=== PATIENT | female | born 1970 | race Two or more races ===

== ENCOUNTER 2024-08-06 09:22 | Inpatient (IN) | payer OTHER ==
[~2024-08-06] VITALS: Ht 162.6 cm; Wt 63.5 kg
--- NOTE | 2024-08-06 09:34 | NUR ---
PACIENTE ALERTA Y ORIENTADA X 3. REFIERE MEDICO SE COMUNICO PARA INDICARLE SODIO Y POTASIO MUY BAJO.
[2024-08-06] MEDS ORDERED: GABAPENTIN300 M2 PO (09:39)
[2024-08-06] MEDS ORDERED: OXTELLAR XR600 MG (09:39)
[2024-08-06] MEDS ORDERED: HYZAAR 100-12.1 EACH PO (09:41)
[2024-08-06] MEDS ORDERED: ESTROGEL50 GM (09:42)
[2024-08-06] MEDS ORDERED: HYDROCHLOROTHIA25 MG PO (09:42)
[2024-08-06] MEDS ORDERED: [UNRECOGNIZED DRUG - OTHER] (09:43)
[2024-08-06] MEDS ORDERED: 0.9 % SODIUM CHLORIDE 1,000 ML IV STA (10:14)
--- NOTE | 2024-08-06 10:26 | NUR ---
PTE ALERTA Y ORIENTADA X3. EL AMES EDUCA A PTE SOBRE TX MEDICO, LA MISMA REFIERE ENTENDER. SE CHARBEL MUESTRAS DE LAB BAJO MEDIDAS ASEPTICAS Y SE COLOCAN IV FLUIDS. SE HACE ENTREGA DE ENVASE PARA U/A PENDIENTE.
[2024-08-06 11:13] LABS: HEMATOCRIT 38.6 % (36.0-45.00); HEMOGLOBIN 13.5 g/dL (12.0-15.00); MEAN CELL VOLUME 93.1 fL (80.00-100.00); MEAN CORPUSCULAR HEMOGLOBIN 32.6 pg (27.00-32.0); PLATELET COUNT 304 K/uL (150-450); RED BLOOD COUNT 4.15 M/uL (4.00-6.00); RED CELL DISTRIBUTION WIDTH 12.7 % (11.5-14.5)
--- NOTE | 2024-08-06 11:14 | NUR ---
SE RECIBE PTE ALERTA Y ORIENTADA X3 EN LA UNIDAD DE CUIDADO CRITICO, SE CONECTA A LA MISMA A MONITOR CARDIAC Y OXIMETRIA DE PULSO CONTINUA. PTE CON UN ANGIO #20 EN RT BAJANDO UN 0.9%NSS @125MLS/HRS. SE MANTIENE A PTE BAJO OBSERVACION POR CAMBIOS SIGNIFICATIVOS.
[2024-08-06 11:29] LABS: ALBUMIN 4.3 gm/dL (3.4-5.0); BILIRUBIN TOTAL 0.36 mg/dL (0.3-1.2); CALCIUM 8.8 mg/dL (8.5-10.1); CREATININE SERUM 0.74 mg/dL (0.55-1.02); GFR 81.78; GLOBULINA 3.6 G/DL (2.4-3.5); POTASSIUM 3.6 mEq/L (3.5-5.1); TOTAL PROTEIN 7.9 gm/dL (6.4-8.2)
[2024-08-06 11:32] LABS: PH,URINE 6.5 (5.0-8.0); URINE APPEARANCE Cloudy; URINE BILIRRUBIN Negative (NEGATIVE); URINE BLOOD Moderate; URINE COLOR Yellow; URINE GLUCOSE Negative (NEGATIVE); URINE KETONE 15 (NEGATIVE); URINE LEUKOCYTE Negative; URINE NITRATE Negative; URINE PROTEIN 30 (NEGATIVE); URINE UROBILINOGEN 0.2 E.U./dl
[2024-08-06 11:35] LABS: URINE BACTERIA 2426.6 uL (0.0-1933); URINE EPITHELIAL CELLS 97.6 uL (0.0-38.8); URINE RBC 108.2 uL (0.0-20.8); URINE WBC 6.1 uL (0.0-23.2)
[2024-08-06] MEDS ORDERED: 0.9 % SODIUM CHLORIDE 1,000 ML IV SCH (12:30)
[2024-08-06] MEDS ORDERED: HYDROCHLOROTHIAZIDE 25 MG TABLET PO SCH (12:42)
[2024-08-06] MEDS ORDERED: LOSARTAN/HYDROCHLOROTHIAZIDE 1 TAB TABLET PO SCH (12:42)
[2024-08-06] MEDS ORDERED: CEFTRIAXONE SODIUM 2,000 MG in 0.9 % SODIUM CHLORIDE 100 ML IV SCH (12:47)
[2024-08-06] MEDS ORDERED: CEFTRIAXONE SODIUM 2,000 MG VIAL ONE (12:55)
[2024-08-06 13:13] VITALS: BP 122/77; O2SAT 99
[2024-08-06 15:24] VITALS: BP 126/74; O2SAT 99
[2024-08-06 17:19] VITALS: BP 146/81; O2SAT 98
[2024-08-06 19:32] LABS: CALCIUM 8.9 mg/dL (8.5-10.1); CREATININE SERUM 0.53 mg/dL (0.55-1.02); GFR 120.21; POTASSIUM 3.49 mEq/L (3.5-5.1)
[2024-08-06] MEDS ORDERED: FUROsemide 20 MG/2 ML VIAL IV SCH (21:00)
[2024-08-06] MEDS ORDERED: FAMOTIDINE/PF 20 MG in 0.9 % SODIUM CHLORIDE 100 ML IV SCH (21:00)
[2024-08-07 00:47] VITALS: BP 104/68; O2SAT 99
[2024-08-07 08:00] VITALS: BP 120/78; O2SAT 99
[2024-08-07 08:27] LABS: CALCIUM 9.1 mg/dL (8.5-10.1); CREATININE SERUM 0.69 mg/dL (0.55-1.02); GFR 88.66; POTASSIUM 3.75 mEq/L (3.5-5.1)
[2024-08-07 16:41] VITALS: BP 121/76; O2SAT 98
== END 2024-08-07 16:57 | disposition home or self-care (01) | DRG 641 ==
LOC: ER 09:23 → SURH 12:48 → SEC-K 12:48 → SURH 13:06
PROVIDERS: General Practice; ADMIT Internal Medicine; ATTEND Internal Medicine
PROC: BT43ZZZ Ultrasonography of Bilateral Kidneys (ICD-10-PCS; principal; 2024-08-06)
DX: E87.1 Hypo-osmolality and hyponatremia (principal); Z20.822 Contact with and (suspected) exposure to COVID-19